=== PATIENT | male | born 1970 | race Caucasian/White ===

== ENCOUNTER 2023-10-26 12:38 | Emergency (ER) | payer SELFPAY ==
[2023-10-26 12:42] VITALS: BP 159/101
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
[2023-10-26] MEDS: ADACEL 0.5 ML IM (13:45)
== END 2023-10-26 13:55 | disposition home or self-care (01) ==
LOC: EMR 12:38
PROVIDERS: EMERGENCY PHYSICIAN Emergency Medicine; FAMILY PHYSICIAN General Practice
DX: S61.511A Laceration without foreign body of right wrist, initial encounter (principal); S61.411A Laceration without foreign body of right hand, initial encounter; W26.8XXA Contact with other sharp object(s), not elsewhere classified, initial encounter; I10 Essential (primary) hypertension; E78.00 Pure hypercholesterolemia, unspecified; Z87.891 Personal history of nicotine dependence; Z23 Encounter for immunization
CPT/HCPCS: 99284; 90471; 12031; 90715

== ENCOUNTER 2024-05-31 13:45 | Outpatient (RCR) | payer OTHER, SELFPAY ==
[2024-05-31 13:55] VITALS: BP 145/89
[2024-05-31 14:37] VITALS: BP 142/94
[2024-05-31 14:38] VITALS: BP 136/86
[2024-05-31 14:59] VITALS: BP 144/86
== END 2024-06-03 11:23 | disposition home or self-care (01) ==
LOC: OID 13:45
PROVIDERS: ATTENDING PHYSICIAN Plastic Surgery; FAMILY PHYSICIAN Family Medicine
DX: D75.1 Secondary polycythemia (principal)
CPT/HCPCS: 99195

== ENCOUNTER → 2024-08-23 11:13 | Outpatient (REF) | payer OTHER, SELFPAY | LOC: HWRCS 11:13 | PROVIDERS: ATTENDING PHYSICIAN Internal Medicine Cardiovascular Disease; FAMILY PHYSICIAN Family Medicine | DX: I25.10 Atherosclerotic heart disease of native coronary artery without angina pectoris (principal); Z95.5 Presence of coronary angioplasty implant and graft; R07.89 Other chest pain | CPT/HCPCS: 78452; 93017; A9500 ==

== ENCOUNTER → 2024-09-13 13:59 | Outpatient (REF) | payer OTHER, SELFPAY | LOC: RCS 13:59 | PROVIDERS: ATTENDING PHYSICIAN Internal Medicine Cardiovascular Disease; FAMILY PHYSICIAN Family Medicine | DX: I21.4 Non-ST elevation (NSTEMI) myocardial infarction (principal) | CPT/HCPCS: 93306 ==

== ENCOUNTER 2024-09-30 08:44 | Outpatient (RCR) | payer OTHER, SELFPAY ==
[2024-09-30 08:56] VITALS: BP 138/83
[2024-09-30 09:23] VITALS: BP 143/84
[2024-09-30 09:24] VITALS: BP 144/93
== END 2024-10-01 11:04 | disposition home or self-care (01) ==
LOC: OID 08:44
PROVIDERS: ATTENDING PHYSICIAN Plastic Surgery; FAMILY PHYSICIAN Family Medicine
DX: D75.1 Secondary polycythemia (principal)
CPT/HCPCS: 99195

== ENCOUNTER 2024-10-30 08:18 | Outpatient (RCR) | payer OTHER, SELFPAY ==
[2024-10-16 08:40] LABS: Hematocrit 49.1 % (39.0-52.0); Hemoglobin 17.1 g/dL (13.0-18.0)
[2024-10-16 08:53] VITALS: BP 151/85
[2024-10-16 09:16] VITALS: BP 139/88
[2024-10-16 09:20] VITALS: BP 141/93
[2024-10-30 08:27] LABS: Hematocrit 48.6 % (39.0-52.0); Hemoglobin 16.6 g/dL (13.0-18.0)
[2024-10-30 08:43] VITALS: BP 149/94
[2024-10-30 09:19] VITALS: BP 136/92
[2024-10-30 09:28] VITALS: BP 159/10
== END 2024-11-05 14:32 | disposition home or self-care (01) ==
LOC: OID 08:18
PROVIDERS: Plastic Surgery; FAMILY PHYSICIAN Family Medicine
DX: D75.1 Secondary polycythemia (principal)
CPT/HCPCS: 36415; 85014; 85018; 99195

== ENCOUNTER 2024-11-13 08:14 | Outpatient (RCR) | payer OTHER, SELFPAY ==
[2024-11-13 08:52] LABS: Hematocrit 46.5 % (39.0-52.0); Hemoglobin 15.9 g/dL (13.0-18.0)
== END 2024-12-05 13:37 | disposition home or self-care (01) ==
LOC: OID 08:14
PROVIDERS: Plastic Surgery; FAMILY PHYSICIAN Family Medicine
DX: D75.1 Secondary polycythemia (principal)
CPT/HCPCS: 36415; 85014; 85018

== ENCOUNTER 2024-12-18 08:19 | Outpatient (RCR) | payer OTHER, SELFPAY ==
[2024-12-11 08:37] LABS: Hematocrit 49.1 % (39.0-52.0); Hemoglobin 16.8 g/dL (13.0-18.0)
[2024-12-18 08:30] LABS: Hematocrit 48.9 % (39.0-52.0); Hemoglobin 16.8 g/dL (13.0-18.0)
[2024-12-18 08:55] VITALS: BP 153/91
[2024-12-18 09:05] VITALS: BP 144/93
[2024-12-18 09:10] VITALS: BP 146/108
== END 2025-01-07 23:59 | disposition home or self-care (01) ==
LOC: OID 08:19
PROVIDERS: ATTENDING PHYSICIAN Plastic Surgery; FAMILY PHYSICIAN Family Medicine
DX: D75.1 Secondary polycythemia (principal)
CPT/HCPCS: 36415; 85014; 85018; 99195

== ENCOUNTER 2025-01-15 08:19 | Outpatient (RCR) | payer OTHER, SELFPAY ==
[2025-01-13 08:14] LABS: Hematocrit 47.4 % (39.0-52.0); Hemoglobin 16.0 g/dL (13.0-18.0)
[2025-01-15 09:02] VITALS: BP 130/83
[2025-01-15 09:15] VITALS: BP 154/88
[2025-01-15 09:20] VITALS: BP 120/87
== END 2025-01-16 09:36 | disposition home or self-care (01) ==
LOC: OID 08:19
PROVIDERS: ATTENDING PHYSICIAN Plastic Surgery; FAMILY PHYSICIAN Family Medicine
DX: D75.1 Secondary polycythemia (principal)
CPT/HCPCS: 36415; 85014; 85018; 99195

== ENCOUNTER → 2025-02-13 08:31 | Outpatient (REF) | payer OTHER, SELFPAY ==
[2025-02-13 08:39] LABS: Hematocrit 47.1 % (39.0-52.0); Hemoglobin 15.4 g/dL (13.0-18.0)
== END ==
LOC: OIDL 08:31
PROVIDERS: ATTENDING PHYSICIAN Plastic Surgery
DX: D75.1 Secondary polycythemia (principal)
CPT/HCPCS: 36415; 85014; 85018

== ENCOUNTER 2025-03-12 09:17 | Outpatient (RCR) | payer OTHER, SELFPAY ==
[2025-03-12 09:27] VITALS: BP 150/100
[2025-03-12 10:01] VITALS: BP 150/103
[2025-03-12 10:04] VITALS: BP 162/101
== END 2025-03-13 11:25 | disposition home or self-care (01) ==
LOC: OID 09:17
PROVIDERS: ATTENDING PHYSICIAN Plastic Surgery; FAMILY PHYSICIAN Family Medicine
DX: D75.1 Secondary polycythemia (principal)
CPT/HCPCS: 99195